=== PATIENT | female | born 1950 | race Caucasian/White ===

== ENCOUNTER 2018-11-26 21:56 | Emergency (ER) | payer OTHER ==
[~2018-11-26] VITALS: Ht 152.4 cm; Wt 104.3 kg
[~2018-11-26 21:56] MED LIST: ORPH100T PO
[2018-11-26] MEDS ORDERED: NEURONTIN300 MG (22:05)
[2018-11-26] MEDS ORDERED: LIRICA (22:06)
[2018-11-27] MEDS ORDERED: KETO10TA2 PO (00:49)
[2018-11-27] MEDS ORDERED: MEDROLPACK PO (00:49)
[2018-11-27] MEDS ORDERED: MUCINEX DM ER1 EAC1 PO (00:49)
[2018-11-27] MEDS ORDERED: FLONASE ALLERG9.9 ML NASAL (00:49)
[2018-11-27] MEDS ORDERED: PROMETH-CODEIN 65 ML PO (00:49)
[2018-11-27] MEDS ORDERED: CEFDINIR300 MG PO (00:49)
== END 2018-11-27 00:49 | disposition home or self-care (01) ==
LOC: ER 21:56
DX: J32.4 Chronic pansinusitis (principal)

== ENCOUNTER 2021-12-09 06:57 | Emergency (ER) | payer OTHER ==
[~2021-12-09] VITALS: Ht 152.4 cm; Wt 91.2 kg
[~2021-12-09 06:57] MED LIST changes: +CEFDINIR300 MG PO; +FLONASE ALLERG9.9 ML NASAL; +KETO10TA2 PO; +LIRICA; +MEDROLPACK PO; +MUCINEX DM ER1 EAC1 PO; +NEURONTIN300 MG; +PROMETH-CODEIN 65 ML PO
== END 2021-12-09 12:48 | disposition home or self-care (01) ==
LOC: ER 06:57
DX: R10.32 Left lower quadrant pain (principal)

== ENCOUNTER 2021-12-10 08:43 | Outpatient (CLI) | payer OTHER | END 2021-12-10 08:52 | disposition home or self-care (01) | LOC: TOM 08:43 | PROVIDERS: ATTEND Emergency Medicine | DX: K57.30 Diverticulosis of large intestine without perforation or abscess without bleeding (principal) ==

== ENCOUNTER 2022-07-18 14:47 | Emergency (ER) | payer OTHER ==
[~2022-07-18] VITALS: Ht 152.4 cm; Wt 90.7 kg
[2022-07-18] MEDS ORDERED: BACTRIM DS TAB1 EACH PO (19:58)
== END 2022-07-18 20:09 | disposition home or self-care (01) ==
LOC: ER 14:47
DX: N39.0 Urinary tract infection, site not specified (principal); R10.32 Left lower quadrant pain

== ENCOUNTER 2022-08-24 07:15 | Outpatient (CLI) | payer OTHER ==
[~2022-08-24 07:15] MED LIST changes: +BACTRIM DS TAB1 EACH PO
== END 2022-08-24 07:16 | disposition home or self-care (01) ==
LOC: NUCLEAR 07:15
PROVIDERS: ATTEND Internal Medicine Rheumatology
DX: M25.50 Pain in unspecified joint (principal)
CPT/HCPCS: 78315; A9503

== ENCOUNTER 2023-03-06 09:41 | Emergency (ER) | payer OTHER ==
[~2023-03-06] VITALS: Ht 152.4 cm; Wt 90.7 kg
[2023-03-06] MEDS ORDERED: TIZANIDINE HCL4 MG (10:44)
[2023-03-06] MEDS ORDERED: CYMBALTA30 MG (10:45)
[2023-03-06] MEDS ORDERED: ZANAFLEX2 M1 (10:46)
[2023-03-06] MEDS ORDERED: TYLENOL325 MG (10:46)
== END 2023-03-06 12:40 | disposition home or self-care (01) ==
LOC: ER 09:41
DX: M25.562 Pain in left knee (principal)

== ENCOUNTER 2023-03-09 10:06 | Outpatient (CLI) | payer OTHER ==
[~2023-03-09 10:06] MED LIST changes: +CYMBALTA30 MG; +TIZANIDINE HCL4 MG; +TYLENOL325 MG; +ZANAFLEX2 M1
== END 2023-03-09 10:14 | disposition home or self-care (01) ==
LOC: MRI 10:06
PROVIDERS: ATTEND General Practice
DX: S83.242A Other tear of medial meniscus, current injury, left knee, initial encounter (principal)
CPT/HCPCS: 73721

== ENCOUNTER 2023-03-23 10:01 | Emergency (ER) | payer OTHER ==
[~2023-03-23] VITALS: Ht 152.4 cm; Wt 90.7 kg
[2023-03-23] MEDS ORDERED: DOLOGEN 325-11 EACH PO (14:19)
[2023-03-23] MEDS ORDERED: CAPSAICIN42.5 GM TOP (14:29)
== END 2023-03-23 14:38 | disposition home or self-care (01) ==
LOC: ER 10:01
DX: G44.89 Other headache syndrome (principal); Z20.822 Contact with and (suspected) exposure to COVID-19

== ENCOUNTER 2023-08-31 07:46 | Outpatient (CLI) | payer OTHER ==
[~2023-08-31 07:46] MED LIST changes: +CAPSAICIN42.5 GM TOP; +DOLOGEN 325-11 EACH PO
== END 2023-08-31 11:59 | disposition home or self-care (01) ==
LOC: MRI 07:46
PROVIDERS: ATTEND Anesthesiology Pain Medicine
DX: M51.17 Intervertebral disc disorders with radiculopathy, lumbosacral region (principal)
CPT/HCPCS: 72148

== ENCOUNTER 2024-07-10 08:44 | Outpatient (CLI) | payer OTHER | END 2024-07-10 09:06 | disposition home or self-care (01) | LOC: MRI 08:44 | PROVIDERS: ATTEND Anesthesiology Pain Medicine | DX: M50.123 Cervical disc disorder at C6-C7 level with radiculopathy (principal); M46.92 Unspecified inflammatory spondylopathy, cervical region; M54.2 Cervicalgia | CPT/HCPCS: 72141 ==

== ENCOUNTER 2024-11-20 17:47 | Emergency (ER) | payer OTHER ==
[~2024-11-20] VITALS: Ht 157.5 cm; Wt 95.3 kg
[2024-11-20 18:17] VITALS: BP 146/75; O2SAT 99
[2024-11-20] MEDS ORDERED: ACETAMINOPHEN 500 MG GEL..CAP PO STA (18:21)
[2024-11-20] MEDS ORDERED: KETOROLAC TROMETHAMINE 60 MG VIAL IM STA (18:21)
[2024-11-20] MEDS ORDERED: CEFAZOLIN SODIUM 1,000 MG VIAL IM STA (18:22)
[2024-11-20] MEDS ORDERED: KETOROLAC TROMETHAMINE 60 MG VIAL IM ONE (18:44)
[2024-11-20] MEDS ORDERED: ACETAMINOPHEN 500 MG GEL..CAP PO ONE (18:44)
[2024-11-20] MEDS ORDERED: CEFAZOLIN SODIUM 1,000 MG VIAL ONE (18:45)
[2024-11-20] MEDS ORDERED: LIDOCAINE HCL 1% 10ML VIAL ONE (18:45)
== END 2024-11-20 19:01 | disposition home or self-care (01) ==
LOC: ER 17:49
DX: S60.011A Contusion of right thumb without damage to nail, initial encounter (principal); X58.XXXA Exposure to other specified factors, initial encounter; Y93.89 Activity, other specified; Y92.89 Other specified places as the place of occurrence of the external cause; Y99.9 Unspecified external cause status